=== PATIENT | male | born 1990 | race Caucasian/White ===

== ENCOUNTER 2016-10-27 00:33 | Emergency (ER) | payer OTHER ==
[~2016-10-27] VITALS: Ht 170.2 cm; Wt 71.8 kg
[~2016-10-27 00:33] MED LIST: NOVO7030P2 SQ
[2016-10-27 00:44] VITALS: BP 143/83; PULSE 65; RESP 18; TEMP 97.9; O2SAT 96
[2016-10-27] MEDS ORDERED: NOVOINJ3 SQ (00:51)
[2016-10-27] MEDS ORDERED: INSU1INJ14 SQ (00:51)
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
== END 2016-10-27 02:32 | disposition home or self-care (01) ==
LOC: PHED 00:33
DX: S00.83XA Contusion of other part of head, initial encounter (principal); S00.33XA Contusion of nose, initial encounter; H53.8 Other visual disturbances; E11.9 Type 2 diabetes mellitus without complications; Y04.2XXA Assault by strike against or bumped into by another person, initial encounter
CPT/HCPCS: 70450; 70486